=== PATIENT | male | born 1950 | race Caucasian/White ===

== ENCOUNTER 2018-06-07 20:07 | Inpatient (IN) | payer OTHER ==
[~2018-06-07] VITALS: Ht 177.8 cm; Wt 75.7 kg
[2018-06-07] MEDS ORDERED: COZAAR50 MG (20:25)
[2018-06-07] MEDS ORDERED: TAMS0.4C (20:25)
[2018-06-19] MEDS ORDERED: HYOSCYAMINE0.125 M1 SL (11:06)
[2018-06-19] MEDS ORDERED: CARAFATE1 GM PO (11:06)
[2018-06-19] MEDS ORDERED: INTESTINEX680 M1 PO (11:06)
== END 2018-06-19 14:48 | disposition home or self-care (01) | DRG 392 ==
LOC: ER 20:07 → SURG 22:53 → SEC-K 22:53 → SURG 06-08 11:33 → SURH 06-15 14:57
PROVIDERS: ADMIT Surgery
PROC: 02HV33Z Insertion of Infusion Device into Superior Vena Cava, Percutaneous Approach (ICD-10-PCS; principal; 2018-06-11)
PROC: B54NZZZ Ultrasonography of Left Upper Extremity Veins (ICD-10-PCS; 2018-06-13)
DX: K57.32 Diverticulitis of large intestine without perforation or abscess without bleeding (principal); I80.8 Phlebitis and thrombophlebitis of other sites; I12.9 Hypertensive chronic kidney disease with stage 1 through stage 4 chronic kidney disease, or unspecified chronic kidney disease; N18.1 Chronic kidney disease, stage 1; N40.0 Benign prostatic hyperplasia without lower urinary tract symptoms

== ENCOUNTER 2018-07-07 10:31 | Inpatient (IN) | payer OTHER ==
[~2018-07-07] VITALS: Ht 172.7 cm; Wt 75.7 kg
[~2018-07-07 10:31] MED LIST: CARAFATE1 GM PO; COZAAR50 MG; HYOSCYAMINE0.125 M1 SL; INTESTINEX680 M1 PO; TAMS0.4C
[2018-07-31] MEDS ORDERED: TERAZOSIN HCL1 M1 PO (12:32)
[2018-07-31] MEDS ORDERED: TAMS0.4C PO (12:32)
[2018-08-12] MEDS ORDERED: GAS-X125 M1 PO (12:55)
[2018-08-12] MEDS ORDERED: HYOSCYAMINE0.125 M1 SL (12:55)
== END 2018-08-12 13:16 | disposition home or self-care (01) | DRG 331 ==
LOC: EDSTATUS 07-31 09:00 → ADM 07-31 09:00 → SURH 08-08 09:00 → O/R 08-09 08:59 → SURH 08-09 08:59 → SURG 08-09 16:28 → SURH 08-09 16:33
PROVIDERS: ADMIT Surgery
PROC: 0DJD8ZZ Inspection of Lower Intestinal Tract, Via Natural or Artificial Opening Endoscopic (ICD-10-PCS; 2018-08-09)
PROC: 0DTN4ZZ Resection of Sigmoid Colon, Percutaneous Endoscopic Approach (ICD-10-PCS; principal; 2018-08-09 11:00)
DX: K57.32 Diverticulitis of large intestine without perforation or abscess without bleeding (principal); I10 Essential (primary) hypertension; N40.0 Benign prostatic hyperplasia without lower urinary tract symptoms; I80.8 Phlebitis and thrombophlebitis of other sites

== ENCOUNTER → 2018-08-08 | Day surgery (SDC) | payer OTHER ==
[~2018-08-08] MED LIST changes: +TAMS0.4C PO; +TERAZOSIN HCL1 M1 PO
== END | disposition home or self-care (01) ==
LOC: AMB-ENDOS 09:17
DX: K57.32 Diverticulitis of large intestine without perforation or abscess without bleeding (principal)

== ENCOUNTER 2019-11-29 10:00 | Day surgery (SDC) | payer OTHER ==
[~2019-11-29 10:00] MED LIST changes: +GAS-X125 M1 PO
== END 2019-11-29 14:48 | disposition home or self-care (01) ==
LOC: AMB-ENDOS 10:00
PROVIDERS: ATTEND Surgery
DX: K62.89 Other specified diseases of anus and rectum (principal); Z20.828 Contact with and (suspected) exposure to other viral communicable diseases; K64.4 Residual hemorrhoidal skin tags